=== PATIENT | male | born 1975 | race Caucasian/White ===

== ENCOUNTER 2025-04-18 14:52 | Day surgery (SDC) | payer OTHER ==
[~2025-04-18] VITALS: Ht 171 cm; Wt 89.8 kg
[~2025-04-18 14:52] MED LIST: ASPI81EC PO; AZIT500 PO; HYDACE25S PR; HYDCOR1TOA TOP; Ondansetron HCl 2 MG / ML 2ML Vial ONE; Prinivil10 MG PO
[2025-04-18 15:07] VITALS: BP 137/98
[2025-04-18 15:14] VITALS: BP 123/95
[2025-04-18] MEDS ORDERED: Midazolam HCl 1MG / ML 2ML Vial ONE (15:23)
--- NOTE | 2025-04-18 15:35 | NUR ---
History, Chart, Medications and Allergies reviewed before start of procedure. Patient up to Ambulate independently. Gait steady. Pre-Op teaching done. Pt verbalizes understanding. Patient confirms NPO status and agrees with scheduled surgery. Patient states colon prep results light yellow without sediment. Patient States Post-Procedure ride home has been arranged.
[2025-04-18 16:00] VITALS: BP 94/59
--- NOTE | 2025-04-18 16:01 | NUR ---
04/18/25 1601 Miguel Angel Padron CONFIRMED AND REVIEWED H&P, MEDCICATIONS, ALLERGIES, MEDICAL HISTORY, RESPIRATORY HISTORY, VITAL SIGNS, 3-LEAD EKG, CONSENTS, AND PHYSICIAN ORDERS. PATIENT CONFIRMS NPO STATUS AND AGREES WITH SCHEDULED PROCEDURE. MONITOR INTACT WITH CONTINUOUS PULSE OXIMETRY, CAPNOGRAPHY, 3-LEAD EKG, INTERMITTENT BP. SUPPLEMENTAL O2 TO BE TITRATED THROUGHOUT PROCEDURE TO MAINTAIN O2 SATURATION ABOVE 90%. PATIENT DETERMINED TO BE ASA APPROPRIATE FOR PROPOFOL SEDATION PRIOR TO START OF PROCEDURE BY DR. GAO.
--- NOTE | 2025-04-18 16:04 | NUR ---
REPORT RECEIVED FROM JEANNIE BARR. VSS. PT ON RA. PT [id number]&[id number]. PT ABLE TO REPOSITION SELF IN BED. PT REQUESTING PO FLUIDS AND TOLERATING THEM WELL. PT DENIES PAIN, NAUSEA OR OTHER DISCOMFORTS.
[2025-04-18 16:12] VITALS: BP 107/79
--- NOTE | 2025-04-18 16:29 | NUR ---
Patient up to Ambulate independently. Gait steady. VSS AND CONSISTENT WITH PT BASELINE. PT HAS NO COMPLAINTS AND VERBALIZES READINESS TO GO HOME. Discharge instructions reviewed with patient and his spouse. Patient verbalizes understanding. Copy given to patient to take home. Patient States Post-Procedure ride home has been arranged. Discharged via wheelchair to private car for ride home. PT BELONGINGS RETURNED TO PT.
== END 2025-04-18 16:22 | disposition home or self-care (01) ==
LOC: ORSCMMR 14:52 → ORD 15:30 → ORSCMMR 15:30
PROVIDERS: Family Medicine
PROC: 0DJD8ZZ Inspection of Lower Intestinal Tract, Via Natural or Artificial Opening Endoscopic (ICD-10-PCS; principal; 2025-04-18 15:30)
DX: Z12.11 Encounter for screening for malignant neoplasm of colon (principal); K64.1 Second degree hemorrhoids; E78.5 Hyperlipidemia, unspecified; I10 Essential (primary) hypertension; Z79.899 Other long term (current) drug therapy
CPT/HCPCS: J2250; J2405; J2704; J7120